=== PATIENT | female | born 1990 | race African-American/Black ===

== ENCOUNTER 2024-05-26 09:02 | Emergency (ER) | payer OTHER, SELFPAY ==
[2024-05-26 09:17] VITALS: BP 117/77; PULSE 76; RESP 16; TEMP 36.7; O2SAT 99
--- NOTE | 2024-05-26 09:58 | ED.EXTPRO ---
HPI - Extremity Problem General Chief complaint: Extremity Problem,Nontraumatic Stated complaint: ring finger right hand swollen,ring stuck Time Seen by Provider: 05/26/24 09:30 Source: patient, RN notes reviewed and old records reviewed Mode of arrival: ambulatory Limitations: no limitations History of Present Illness HPI Narrative: Patient presents with complaints of ring stuck to right 3rd finger. She reports that she has had a ring on for about 1 week, the finger became swollen yesterday. She denies any injury or trauma. She reports that she has been trying to get the ring off, and the finger becomes more swollen as results. She now expresses discomfort. No other concerns or complaints today. Related Data Allergies Allergy/AdvReac Type Severity Reaction Status Date / Time No Known Allergies Allergy Verified 05/26/24 09:59 Review of Systems Review of Systems: All systems reviewed & are unremarkable except as noted in HPI and below Constitutional: Constitutional: Reports no additional constitutional complaints ENT: Reports system reviewed and no additional complaints, except as documented Cardiovascular: Cardiovascular: Reports no additional cardiovascular complaints Respiratory: Respiratory: Reports no additional respiratory complaints Gastrointestinal: Gastrointestinal: Reports no additional gastrointestinal complaints Musculoskeletal: Musculoskeletal: Reports no additional musculoskeletal complaints and Reports as per HPI Exam Const: General: cooperative, no acute distress, alert and awake Orientation/consciousness: oriented to person, oriented to place and oriented to time HENMT: Head: normal to inspection Resp: Effort & Inspection: normal respiratory effort and able to speak in complete sentences Auscultation: clear to auscultation bilaterally, no crackles, no rales, no rhonchi and no wheezes Cardio: Palpation: normal PMI Rate: regular rate Rhythm: regular rhythm Heart sounds: S1 normal heart sound present and S2 normal heart sound present Neuro: General: oriented to person, oriented to place and oriented to time Cranial nerves: Yes CN's II-XII intact bilaterally Extrem: Right upper extremity: Extremity exam: right hand normal capillary refill, neuromotor exam normal, neurosensory exam normal and other (Diffuse swelling to right 3rd digit, there is a ring stuck at the base of the finger) Psych: Appearance: grossly normal Thought process: Normal thought process present Insight: Good insight present (Psych) Judgement: Good judgement present (Psych) Course Course Level of Care: Express Care Visit Vital Signs Vital signs: Vital Signs Temperature 98.1 F 05/26/24 09:17 Pulse Rate 76 05/26/24 09:17 Respiratory Rate 16 05/26/24 09:17 Blood Pressure 117/77 05/26/24 09:17 Pulse Oximetry 99 05/26/24 09:17 Oxygen Delivery Room Air 05/26/24 09:17 Temperature 98.1 F 05/26/24 09:17 Pulse Rate 76 05/26/24 09:17 Respiratory Rate 16 05/26/24 09:17 Blood Pressure 117/77 05/26/24 09:17 Pulse Oximetry 99 05/26/24 09:17 Oxygen Delivery Room Air 05/26/24 09:17 MDM - Extremity (Nontraumatic) MDM Narrative Medical decision making narrative: Unsuccessful attempt to remove the ring. Patient given resources such as [employer], jeweler for removal of the ring. Discharge instructions reviewed with patient, as well as provided in writing per nursing staff. The instructions also include specific and strict return/GO TO THE ER as well as f/u information. All questions have been answered, and the patient deny any further questions with discharge and discharge plan. Some parts of this dictation were generated by voice recognition software and may contain typographical and/or grammatical inaccuracies. Differential Diagnosis Differential diagnosis: Likely cellulitis and other (Finger fracture) Discharge Plan Discharge Clinical Impression: Finger injury Qualifiers:
[2024-05-26] MEDS: IBUPROFEN 400 MG TABLET 800 MG PO (10:03)
--- NOTE | 2024-05-26 11:09 | PC.NURSE ---
Attempted to remove pt. ring with lubrication and tourniquet x1 but unable to due to pt. swelling and pain.
== END 2024-05-26 10:19 | disposition home or self-care (01) ==
PROVIDERS: Emergency Provider Nurse Practitioner Family
DX: S69.91XA Unspecified injury of right wrist, hand and finger(s), initial encounter (principal); X58.XXXA Exposure to other specified factors, initial encounter
CPT/HCPCS: 99212; A9270; G0463